=== PATIENT | female | born 1955 | race Caucasian/White ===

== ENCOUNTER 2024-06-12 15:32 | Inpatient (IN) | payer MEDICARE, OTHER, SELFPAY ==
[2024-06-12] VITALS (13 sets, daily range): BP systolic 98–136; BP diastolic 47–93; BMI 27.6
[2024-06-12 12:29] LABS: % Basophils 0.9 % (0-2); % Immature Granulocytes 0.4 % (0-0.5); % Lymphocytes 16.6 % (20.5-51.1); % Monocytes 6.7 % (1.7-9.3); % Neutrophils 73.4 % (42.2-75.2); Absolute Basophils 0.1 10^3/uL (0-0.2); Absolute Eosinophils 0.2 10^3/uL (0-0.7); Absolute Lymphocytes 1.4 10^3/uL (1.2-3.4); Absolute Monocytes 0.6 10^3/uL (0.1-0.6); Hematocrit 41.8 % (37.0-47.0); Hemoglobin 14.3 g/dL (12.0-16.0); Mean Corp Hgb Conc. 34.2 g/dL (33.0-37.0); Mean Corpuscular Hgb 32.4 pg (27.0-31.0); Mean Corpuscular Volume 94.6 fL (81.0-99.0); Nucleated Red Blood Cells % 0 %; Platelet Count 274 10^3/uL (130-400); Red Blood Cell Count 4.42 10^6/uL (4.20-5.40); Red Cell Dist. Width 13.3 % (11.5-14.5); White Blood Cell Count 8.2 10^3/uL (4.8-10.8)
--- NOTE | 2024-06-12 12:31 | ED.GENMED ---
History of Present Illness
General
Chief Complaint: Weakness
Time Seen by Provider: 06/12/24 12:30
History of Present Illness
History of Present Illness:
TIME OF INITIAL ENCOUNTER: 12:30 PM
HPI: Patient came in by ambulance. She has a history of Parkinson's as well as left-sided paresis related to trauma from the early (fall down steps) and lives on her own. She states she has care on Mondays. On Wednesday, she had trouble
getting out of bed and very mildly injured her right ankle but currently has no ankle pain. Patient denies any head injury she was also told that she recently had labs that showed a potassium of 6.3. She has been about needing higher level of
care. She reportedly was soaked in urine when she came in initially. She also reportedly drank alcohol over the weekend. She was essentially bedridden and did have oxycodone near her that she took due to her chronic pain. She states she takes 5
mg of oxycodone in the daytime and 5 mg of oxycodone at nighttime.
EXAM:
GENERAL: The patient appears very weak and debilitated
HEENT: Slightly dry oral mucosa
CARDIOVASCULAR: No murmurs, normal heart rate, regular rhythm, No chest wall tenderness
PULMONARY: No respiratory distress, breath sounds are clear and equal
ABDOMEN: Soft with no peritoneal signs, no tenderness
NEUROLOGIC: Resting tremor noted to the upper extremities, markedly decreased strength in the left upper and left lower extremities, appropriate mental status,
PSYCHIATRIC: Normal insight and judgement, however somewhat of a flat affect
EXTREMITIES: Decreased active range of motion due to decree strength on the left side, no tenderness nor swelling to the right ankle
SKIN: No rash, no lesions
NUMBER AND COMPLEXITY OF PROBLEMS ADDRESSED AT THE ENCOUNTER
� Chronic conditions affecting care: Parkinson's, brain injury with left-sided hemiparesis from 1989, COPD/asthma, high blood pressure
� Acute Exacerbation and/or Progression of Chronic Illness: This is an acute problem
� Differential Diagnosis includes: Dehydration, failure to thrive, progression of Parkinson's, hyperkalemia, LURDES, rhabdomyolysis
AMOUNT AND/OR COMPLEXITY OF DATA TO BE REVIEWED AND ANALYZED
� I performed an independent evaluation of and my interpretation is:
EKG: Baseline artifact but suspect sinus, rate of 73, poor R wave progression, QRS 136 ms/IVCD/LVH
CT: CT chest shows no concerning abnormality regarding nodules seen on x-ray
X-rays: X-ray right ankle unremarkable, x-ray of chest shows a nodule for which radiology recommends CT
Laboratory Studies: CBC unremarkable, 3+ ketones on urinalysis but no clear evidence of infection, CK 114, sodium 133, bicarb 16
Other:
� Review of other/old records: I reviewed records, the patient was admitted here in April 2019 related to an infected stage IV decubitus ulcer at the right middle back.
� Clinical information was obtained by an independent historian: I spoke to a family friend at bedside
� Prescriptions/Medications Considered but not given:
� Further testing considered but not performed:
RISK OF COMPLICATIONS AND/OR MORBIDITY OR MORTALITY OF PATIENT MANAGEMENT
� Social determinants of health affecting care: Lives at home by herself, no family involvement
� Discussion with other providers: Hospitalist for admission for dehydration
� Escalation of care including admission/observation vs risk of discharge considered: The patient lives at home and has essentially been bedridden for the past 3 days. She has ketonuria with a bicarb of only 16. She was given
IV fluids. Multiple blood draws were obtained as she had hemolysis several times�still awaiting potassium. Alcohol level is detected at 79. She is not currently tachycardic and MCV is 95.
ANY OTHER UPDATES:
Past History
Past History
ED Past Medical History: Asthma, COPD, CVA and Other (Rhabdomyolysis)
ED Past Surgical History: Orthopedic (Left hand surgery) and Other (Jaw surgery)
Social History
Tobacco: Non-smoker
Personal: Single
Living: alone
Employment: Disabled
Phy Exam
Physical Exam
Physical Exam:
See HPI
Course
Orders/Labs/Results
Orders:
Orders
06/12/24 12:17
Alcohol Urgent
Basic Metabolic Panel Urgent
Complete Blood Count/With Diff Urgent
Creatine Phosphokinase Urgent
Comment: ADD
Urinalysis Reflex To Culture Urgent
Date Specimen was Collected: 06/12/24
Time Specimen was Collected: 12:16
Urine Microscopic Reflex Cult Urgent
06/12/24 12:25
EKG [Electrocardiogram (*1)] Urgent
Reason for Study: Vertigo / Dizzy
EKG- Treatment ONCE
06/12/24 12:36
Add On- LAB Urgent
Tests Added?: ck
0.9% Sodium Chloride 1000 ml [Nss] 1,000 ml IV BOLUS
06/12/24 12:41
Ankle, Right 3 view CR [CR Ankle - Right Min 3 Views *] Urgent
Comment:
Reason For Exam: trauma
06/12/24 12:42
CR Chest - 2 Views Urgent
Comment:
Reason For Exam: weakness
06/12/24 12:46
Oxycodone [Roxicodone] 5 mg PO NOW STA
06/12/24 13:45
Comprehensive Metabolic Panel Urgent
06/12/24 14:35
CT Chest With Iv Contrast Urgent
Comment:
Reason For Exam: eval lung nodule
0.9% Sodium Chloride 1000 ml [Nss] 1,000 ml IV BOLUS
06/12/24 15:08
Admit/Transfer Patient As Directed
Co-Sign Provider:
Level of Care: Inpatient admission
Assign to:: Medical/Surgical
Physician / Group: dangelo betts
Diagnosis: ambulatory dysfunction
Reason for Hospitalization: ambulatory dysfunction
Expected length of stay greater than two midnights?: Yes
ELOS- Estimated Length of Stay in days: 3
I certify the patient meets the requirements for IP care: Yes
PRN Pain Medication Management As Directed
May give lesser potent ordered pain med per pt: Yes
preference::
Protocol:: Medication orders for pain may be administered in a
manner that supports deferring to patient preference
when the pt is:
- Requesting an ordered lesser potent pain medication.
Least to most potent pain medications are defined
as: acetaminophen < NSAID < tramadol < opioids
(morphine, oxycodone, hydromorphone).
- Requesting a lesser dose of the same medication IF
ORDERED.
- Requesting a less intrusive route of administration
if both routes are prescribed by the provider (PO <
IV).
06/12/24 15:09
Code Status As Directed
Resuscitation Status: Full Code
Abnormal Lab Results
06/12/24 06/12/24
12:17 13:45
MCH 32.4 H pg
(27.0-31.0)
Lymphocytes % 16.6 L %
(20.5-51.1)
Sodium 133 L mmol/L
(135-145)
Chloride 96 L mmol/L
(98-107)
Carbon Dioxide 16 L mmol/L 18 L mmol/L
(22-30) (22-30)
BUN 36 H mg/dl 35 H mg/dl
(7-17) (7-17)
AST 60 H U/L
(14-36)
ALT 43 H U/L
(0-35)
Urine Ketones 3+ A
(Negative)
Ur Occult Blood Reflex 3+ A
(Negative)
Urine RBC 7-10 A /HPF
(0-2)
Urine Bacteria (Reflex) Few A
(Negative)
Urine Albumin (Reflex) 2+ A
(Neg - Trace)
06/12/24 12:17
06/12/24 13:45
Vital Signs
Initial and Last Documented VS:
Initial Vital Signs
BP
132/73
06/12/24 12:18
Last Documented Vital Signs
Temp Pulse Resp BP Pulse Ox
36.7 C 75 18 118/81 100
06/12/24 12:19 06/12/24 15:00 06/12/24 15:00 06/12/24 14:00 06/12/24 14:15
*Critical Care Note
Total Time (30-74mins, 75-104mins- exclusive of procedures): Not Applicable
ED Attending Note
-
Portions of this chart may have been created with voice recognition software.� Occasional wrong word or��sound alike� substitutions may have occurred due to the inherent limitations of voice recognition software.
Discharge Plan
Departure
Patient Disposition: Admit
Date of Disposition: 06/12/24
Time of Disposition: 14:46
Presentation/result/management discussed w/ accepting MD/DO: Hospitalist
Discharge Problem:
Acute dehydration
Interventions
Interventions:
*Risk Screen - Suicide Last Done: 06/12/24 12:19
*General Assessment Last Done: 06/12/24 12:19
*Neglect/Abuse Screening Last Done: 06/12/24 12:19
*ED- Fall Risk Assessment Last Done: 06/12/24 12:19
*ED COVID-19 Vaccine History Last Done: 06/12/24 12:19
ED- Cardiac Assessment Last Done: 06/12/24 12:19
ED- Neurological Assessment Last Done: 06/12/24 12:19
ED- Pulmonary Assessment Last Done: 06/12/24 12:19
[2024-06-12 12:35] LABS: Urine Albumin 2+ (Neg - Trace); Urine Bilirubin Negative (Negative); Urine Character Clear (Clear); Urine Color Yellow; Urine Glucose Negative (Negative); Urine Ketone 3+ (Negative); Urine Leukocyte Negative (Negative); Urine Nitrite Negative (Negative); Urine Occult Blood 3+ (Negative); Urine Urobilinogen Negative (Neg - 1+)
[2024-06-12] MEDS: NSS 1000 IV ×3 (12:46→20:50)
[2024-06-12] MEDS: ROXICODONE 5 MG PO ×2 (12:51→21:06)
[2024-06-12 12:53] LABS: Alcohol 79 mg/dl; Blood Urea Nitrogen 36 mg/dl (7-17); Calcium 9.9 mg/dl (8.4-10.2); Carbon Dioxide 16 mmol/L (22-30); Chloride 96 mmol/L (98-107); Glucose 74 mg/dl (70-99); Sodium 133 mmol/L (135-145); eGFR > 60.00
[2024-06-12 13:12] LABS: Creatine Phosphokinase 114 U/L (30-135)
[2024-06-12 14:28] LABS: Urine White Cell 0-2 /HPF (0-5)
[2024-06-12 14:29] LABS: Urine Squamous Cell 0-2 /LPF (Few)
[2024-06-12 14:30] LABS: Urine Bacteria Few (Negative)
[2024-06-12 14:34] LABS: ALT (SGPT) 43 U/L (0-35); AST (SGOT) 60 U/L (14-36); Albumin 4.1 g/dl (3.5-5.0); Alkaline Phosphatase 78 U/L (38-126); Blood Urea Nitrogen 35 mg/dl (7-17); Calcium 9.2 mg/dl (8.4-10.2); Carbon Dioxide 18 mmol/L (22-30); Chloride 99 mmol/L (98-107); Glucose 73 mg/dl (70-99); Sodium 136 mmol/L (135-145); Total Bilirubin 1.3 mg/dl (0.2-1.3); Total Protein 6.3 g/dl (6.3-8.2); eGFR > 60.00
--- NOTE | 2024-06-12 14:41 | HPS.HSE ---
Family Physician
-
Family Physician: Zane White, DO
Chief Complaint
-
ambulatory dysfunction.
History of Present Illness
69 year old with PMH for Parkinson disease, asthma, osteoporosis, htn, HLD, ADD presented to us with ambulatory dysfunction since Wednesday. patient stated two falls last week. she fell on her knees. denid hitting her head. since Wednesday, she is too
weak to get up from bed and walk, she pretty much stayed in bed. she wet herself on the bed, as she was not able to walk to the bathroom. denied ARNDT, dizzy or syncope. denied fever, chills, chest pain, sob. denied abdominal pain,n,v,d. denied dysuria
or hematuria.
she drinks vodka daily, her last drink was this morning.
upon arrival she was noted to electrolyte imbalance. received normal saline in ER. admitting for further management.
Medical History
Past Medical History
Past Medical History: Reports Other
Additional Past Medical History:
Asthma
Anxiety
Hyperlipidemia
Osteoporosis
Hypertension
ADD
Parkinson's
Rosacea
Subdural hematoma with left hemiplegia
Left ankle fracture
Gastric ulcer
Prurigo nodularis
Past Surgical History: Reports Other
Additional Past Surgical History:
Jaw joint replacement
Left hand tendon reconstruction
Drainage of hematoma from leg
Social History
Tobacco: Non-smoker
Alcohol: Daily
Drug: None
Personal: Single
Living: Alone
Family History
Family History: Not pertinent
Allergies / Home Medications
Allergies reflects when Allergies were last updated in [employer].
Home Medications with original date entered in [employer]
Allergy/Medication List:
Allergies
Allergy/AdvReac Type Severity Reaction Status Date / Time
levofloxacin [From Levaquin] Allergy Rash Verified 06/12/24 12:15
sodium pentathol Allergy Unknown Uncoded 06/12/24 12:15
Home Medications
albuterol sulfate 90 mcg/actuation aerosol inhaler 1 puff inhalation R Q4HPRN PRN sob/wheeze 04/10/19
bupropion HCl 300 mg 24 hr tablet, extended release 300 mg PO DAILY 04/10/19
cholecalciferol (vitamin D3) 25 mcg (1,000 unit) tablet 1,000 units PO DAILY 04/10/19
diphenhydramine HCl 2 % topical gel (Benadryl) 1 applic topical DAILYPRN PRN wound - neck/foot/other 04/10/19
docusate sodium 100 mg capsule 100 mg PO QIDPRN PRN constipation 04/10/19
fluticasone furoate 100 mcg-vilanterol 25 mcg/dose inhalation powder (Breo Ellipta) 1 puff inhalation R DAILY 04/10/19
folic acid 1 mg tablet 1 mg PO DAILY 04/10/19
guaifenesin 600 mg tablet, extended release 12 hr (Mucus Relief ER) 600 mg PO Q6HPRN PRN congestion 04/10/19
oxycodone 5 mg tablet 5 mg PO Q6HPRN PRN moderate pain 04/10/19
polyethylene glycol 3350 17 gram oral powder packet 17 grams PO DAILYPRN PRN constipation 04/10/19
valsartan 40 mg tablet 40 mg PO HS 04/10/19
acetaminophen 500 mg tablet (Tylenol Extra Strength) 500 mg PO Q4HPRN PRN mild pain 05/04/19
clonazepam 1 mg tablet 4 mg PO DAILY 05/04/19
polyvinyl alcohol-povidone (PF) 1.4 %-0.6 % eye drops in a dropperette (Refresh Classic (PF)) 1 drops BOTH EYES DAILYPRN PRN dry eye/irritation 05/04/19
amoxicillin 500 mg-potassium clavulanate 125 mg tablet 1 tab PO Q12 05/09/19
ketoconazole 2 % topical cream 1 applic topical BID 05/09/19
miconazole nitrate 2 % topical powder (Miconazorb AF) 1 applic topical DAILY 05/09/19
miconazole nitrate 2 % topical powder (Miconazorb AF) 1 applic topical PRN PRN SOILAGE/DRAINAGE 05/09/19
sodium hypochlorite 0.125 % solution (Dakin's Solution) 1 applic topical DAILY 05/09/19
white petrolatum 42 % topical ointment (Hydrophor) 1 applic topical DAILY 05/09/19
Review of Systems
-
Constitutional: Reports No Symptoms
EENT: Reports No Symptoms
Respiratory: Reports No Symptoms
Cardiac: Reports No Symptoms
Abdomen/GI: Reports No Symptoms
: Reports No Symptoms
Musculoskeletal: Reports No Symptoms
Skin: Reports No Symptoms
Neurological: Reports Weakness
Endocrine: Reports No Symptoms
Hematologic/Lymphatic: Reports No Symptoms
Psych: Reports No Symptoms
Physical Exam
Vital Signs
Vital Signs
Temp Pulse Resp BP Pulse Ox
98.0 F 76 16 132/73 99
06/12/24 12:19 06/12/24 12:19 06/12/24 12:19 06/12/24 12:19 06/12/24 12:19
Physical Exam
General: Well Developed, Well Nourished and No Apparent Distress
HEENT: NormoCephalic, Moist mucous membranes and Atraumatic
Respiratory: Clear
Cardiac: S1/S2 and Regular Rhythm; No Murmur or Rub
GI: Soft, Non Tender, Non Distended and Normal Bowel Sounds; No Organomegaly
Rectal: Deferred by Provider
Musculoskeletal: No Clubbing, No Cyanosis and No Edema
Skin: No Rash
Neuro: AO x 3 and Nonfocal/grossly intact
Psych: Calm
Laboratory Results
-
06/12/24 12:17
06/12/24 13:45
Laboratory Results
PT Cancelled 06/12/24 12:29
INR Cancelled 06/12/24 12:29
Total Bilirubin 1.3 mg/dl (0.2-1.3) 06/12/24 13:45
AST 60 U/L (14-36) H 06/12/24 13:45
ALT 43 U/L (0-35) H 06/12/24 13:45
Alkaline Phosphatase 78 U/L (38-126) 06/12/24 13:45
Data Reviewed
-
Diagnostic Radiology: Report Reviewed by me
Lab Data: Labs Reviewed by me
Impression/Plan
-
# Ambulatory dysfunction/fall
-hxt of fall with left sided hemiparesis, walks with walker
-right ankle x ray with no acute fracture.
-PT/OT consulted
-Cm consulted for placement.
# history of Parkinson
#essential tremors
#chronic pain
-propranolol continued
-oxy continued
# anion gap metabolic acidosis likely dehydration
- , CO2 18,anion gap 19
-fluids continued
-BMP in am
#Midlung Nodule
-Chest x-ray with no acute pulmonary abnormality. 1.4 cm right midlung nodule
- CT of chest pending
# Chronic transaminitis likely from alcohol use
- AST 60, ALT 43
-denied abdominal pain
-trend LFT
#alcohol dependence
-protocol initiated
-monitor MSAS score
#hxt of asthma
-Singulair continued
-nebs from home continued
#essential HTN
-Norvasc continued
#DVT prophylaxis
-Lovenox
#CODE status
-full code
--- NOTE | 2024-06-12 15:12 | W.PN.UPDATE ---
Update Note
Progress Note Update
This note serves as an addendum to the H&P by casing flusher MARYA Cait NESBITT
HPI
69F [facility] EMS from home, lives alone, use walker to walk home help care on Mondays, chronic narcotic depedent depedent pain daily ETOH use, HX Parkinson dz, HX Asthma, COPD, CVA, , HX Rt brachial plexopathy, HX TBI complicated with Lt sided
hemiparesis due to remote HX of fall,du HTN, HX healed Chr mid back wound, has care on Mondays.
- last Wednesday, she had trouble getting out of bed s/p fall on her kness , currently has no pain.
- essentially bed ridden since Wednesday otherwise
- denies any head injury
- she recently had labs that showed a potassium of 6.3. Vurrent K is 5.0 at ER
- reportedly was soaked in urine when she came in initially
- reportedly drank daily Vodka 8 oz
- She is on 5 mg of oxycodone in the daytime and 5 mg of oxycodone at nighttime.
PHX; see above
Vital Signs
Temp Pulse Resp BP Pulse Ox
98.0 F 75 18 118/81 100
06/12/24 12:19 06/12/24 15:00 06/12/24 15:00 06/12/24 14:00 06/12/24 14:15
PE
Gen: chr ill , looks weak and debilitated
HEENT: dry oral mucosa
Neck: supple
Lungs: CTA
Cor: RRR S1 S2
Abdomen:
ESL INSTRUCTIONAL ASSISTANT:
- resting tremor noted to the upper extremities
- decreased strength in the left upper and left lower extremities
- appropriate mental status,
MS:
Psych: Normal insight and judgement,
Labs
05/23/19 06/12/24 06/12/24
06:00 12:17 13:45
WBC 4.6 L 8.2
Hgb 11.1 L 14.3
Plt Count 274
Sodium 133 L 136
Potassium 5.0
Chloride 96 L 99
Carbon Dioxide 16 L 18 L
BUN 36 H 35 H
Creatinine 1.0 1.0
eGFR > 60.00 > 60.00
AST 60 H
ALT 43 H
Creatine Kinase 114
Albumin 4.1
Last hospitalist admission: 05/04/2019 - 05/09/2019
PRIMARY DIAGNOSIS:
1. Infected stage IV decubitus ulcer of the right middle back.
2. Chronic neck wound.
ASSESSMENT & PLAN
Deconditioning s/p recent falls: NEG Areli XR for Fx
Interval acute decline of chr ambulatory dysfuction
Dehydration
- IV NS 80/H
- PT
- CRM consult for placement ? SNF
Daily ETOH use disorder or habituation
Ab LFTS - ETOH liver dz vs. dehydration AILI
- check GGT
- Trend LFTs in response to IVF
- concern for WDS
- ETOH WD protocol for low risk
HX COPD
- c/w all OP med
HX Parkinson dz Dxed at [facility]
- she was not tolerating Parkinson Meds due to vomiting per patient
- c/w CORN CROP SUPERVISOR Propranolol
Chr ambulatory dysfunction at baseline
Use walker at base line
HX traumatic brain injury complicated by Lt sided hemiparesis
Known Right brachial plexopathy
Lives lone with support of home health care care on Mondays
- eval for placement
DVT Px: LMWH
Full code
IP MS
[2024-06-12] MEDS: THIAMINE INJECTION 200 MG IV (20:40)
[2024-06-12] MEDS: INDERAL 10 MG PO (20:40)
[2024-06-12] MEDS: LOVENOX SC (20:51)
[2024-06-12] MEDS: INDERAL PO (21:15)
[2024-06-12 21:24] LABS: GGTP 20 U/L (12-43); Magnesium 1.7 mg/dl (1.6-2.3); Phosphorus 3.5 mg/dl (2.5-4.5)
[2024-06-12 21:26] LABS: Alcohol None Detected
[2024-06-12] MEDS: AMBIEN 5 MG PO (22:32)
[2024-06-12 23:01] LABS: Amphetamines Negative (Negative); Barbiturates Negative (Negative); Benzodiazepines Negative (Negative); Buprenorphine Negative (Negative); Cocaine Negative (Negative); Marijuana Negative (Negative); Methadone Negative (Negative); Methamphetamines Negative (Negative); Opiates Negative (Negative); Phencyclidine Negative (Negative); Tricyclic Antidepressants Negative (Negative)
[2024-06-12 23:18] LABS: Fentanyl, Urine Negative (Negative)
[2024-06-13] VITALS (23 sets, daily range): BP systolic 100–161; BP diastolic 42–112; PULSE 83; O2SAT 98; BMI 27.6; BMI 28.1
[2024-06-13 06:31] LABS: ALT (SGPT) 33 U/L (0-35); AST (SGOT) 41 U/L (14-36); Albumin 2.9 g/dl (3.5-5.0); Alkaline Phosphatase 59 U/L (38-126); Blood Urea Nitrogen 36 mg/dl (7-17); Calcium 8.1 mg/dl (8.4-10.2); Carbon Dioxide 20 mmol/L (22-30); Chloride 101 mmol/L (98-107); Direct Bilirubin 0.3 mg/dl (0.0-0.4); Estimated Creatinine Clearance 55 ml/min; Glucose 101 mg/dl (70-99); Potassium 4.5 mmol/L (3.5-5.1); Sodium 132 mmol/L (135-145); Total Bilirubin 1.2 mg/dl (0.2-1.3); Total Protein 4.7 g/dl (6.3-8.2); eGFR > 60.00
[2024-06-13] MEDS: FOLVITE 1 MG PO (08:03)
[2024-06-13] MEDS: NORVASC 5 MG PO (08:03)
[2024-06-13] MEDS: SINGULAIR 10 MG PO (08:04)
[2024-06-13] MEDS: THIAMINE INJECTION 200 MG IV ×2 (08:04→20:36)
[2024-06-13] MEDS: DESENEX/MITRAZOL/ZEASORB 1 APPLIC TOPICAL ×2 (08:05→20:33)
[2024-06-13] MEDS: NSS 1000 IV ×2 (08:05→20:33)
[2024-06-13] MEDS: INDERAL 10 MG PO ×3 (10:33→22:21)
[2024-06-13] MEDS: ROXICODONE 5 MG PO ×2 (12:28→21:29)
--- NOTE | 2024-06-13 14:22 | PTOTSP ---
Dysphagia Evaluation
Patient presents with acute on chronic risk dysphagia/aspiration risk factors (i.e., Parkinson's disease, TBI, asthma/COPD, daily ETOH use and chronic narcotic use) and CXR with concern for possible right sided PNA. Patient with frequent coughing
at the bedside making r/o aspiration difficulty and reported liquids going into 'windpipe'.
Recommend:
1. Temporary NPO
2. Medications via non-oral if able, otherwise essential meds in puree
3. Oral care 3x daily
4. Video swallow study
5. Hold aspiration risk hydration protocol due to frequent coughing and concern for acute PNA
--- NOTE | 2024-06-13 15:34 | W.PN.HOSP.TC ---
Addendum entered and electronically signed by Judy Sanchez MD 06/13/24 15:58:
I saw and evaluated the patient. I reviewed the resident�s note and agree with findings and plan as documented in the resident�s note.
A/P:
# Clinical deconditioning with frequent falls at home
# Ambulatory dysfunction
Uses a walker at baseline
PT OT recc SNF
# Cough following diet due to chronic dysphagia
# Aspiration pneumonitis versus pneumonia
CXR noted new Mild right lower lobe atelectasis versus developing pneumonia
Check procal and would add empiric antibiotic for aspiration pneumonia coverage if elevated
Appreciate SPL eval, recc NPO for now
Check VSE
# Alcohol abuse/ daily alcohol drinking
counseled on alcohol cessation
Continue MSAS protocol, watch for withdrawal
# Parkinson's disease history
Continue with propranolol for the tremors
# Hypertension:
blood pressure 127/79 today, well-controlled
Continue amlodipine 5 mg p.o. daily
DVT ppx: Lovenox SQ
FC
Original Note:
Today's Communication/Plan
-
- follow up speech therapy
- follow up pt/ot
Assessment / Plan
Assessment / Plan
Deconditioning status post recent fall
Ambulatory dysfunction:
- Speech evaluation ordered
- Uses a walker at baseline
- PT OT ordered
- Will wait for speech therapy recommendations on diet
- Monitor electrolytes and hydration
- Patient likely needs skilled
- Continue to assess functional status daily
Suspicion for aspiration pneumonia:
- Patient complains of shortness of breath and coughing after eating food
- Chest x-ray ordered
- Speech evaluation ordered
Alcohol abuse:
- Counseled on alcohol cessation
- Patient last drink yesterday morning and drinks daily
- Continue MSAS protocol
Parkinson's disease history:
- Continue with propranolol for the tremors
Hypertension:
-Today blood pressure is 127/79 and well-controlled
- Continue amlodipine 5 mg p.o. daily
Anticipated Discharge: 24 - 48 hours
Subjective/Interval History
-
Date of Service: June 13, 2024
Patient is complaining of pain and wants an extra dose of oxycodone to control pain. She is already taking Oxy twice a day prior to admission and and is being prescribed by her primary care provider.
Also complains of shortness of breath and coughing after eating food
Objective Data
-
Labs:
Laboratory Results
06/13/24
05:55
Sodium 132 L
Potassium 4.5
Chloride 101
Carbon Dioxide 20 L
BUN 36 H
Creatinine 1.0
Glucose 101 H
Calcium 8.1 L
Total Bilirubin 1.2
AST 41 H
ALT 33
Alkaline Phosphatase 59
Vital Signs:
Vital Signs
Temp Pulse Resp BP Pulse Ox
98.5 F 85 20 127/79 96
06/13/24 11:52 06/13/24 08:21 06/13/24 08:21 06/13/24 10:33 06/13/24 11:13
I&O
06/12/24 06/13/24 06/14/24
06:59 06:59 06:59
Intake Total 240 / 240
Balance 240 / 240
Review of Systems
-
All other systems: Reviewed and negative
Physical Exam
-
General: Appears Chronically Ill
Respiratory: Clear to Auscultation
Cardiac: Regular Rhythm and S1/S2
GI: Soft, Nondistended and Normal Bowel Sounds
Musculoskeletal: No Edema
Neuro: Awake, Alert, Oriented, AO x 3 and Other (Decreased strength on upper left extremity, resting tremor on upper left extremity)
Data Reviewed
-
Labs: Labs Reviewed by me and Discussed with Physician
[2024-06-13] MEDS: LOVENOX 40 MG SC (17:55)
[2024-06-13 18:49] LABS: Procalcitonin < 0.05 ng/ml (0.0-0.25)
--- NOTE | 2024-06-13 21:00 | PTCARENOTE ---
Addendum entered by Roby Diamond RN 06/14/24 05:57:
Pt c/o SOB after turning to be clean. Placed back in 2L O2 NC. STOCKROOM CLERK and respiratory notified. COVID and Flu test order. Will wean off O2.
Original Note:
Pt was admitted to [facility]. AAOx3, forgetful at times and anxious. Pt c/o SOB moved to the bed. Dyspneic w/ exertion.SaO2 94% RA. Placed on 2L for comfort till stable fro 1 hr. MSAS score <4. Purewick in placed for incontinence. Pt c/o itchy back. STOCKROOM CLERK
notify. Abd round and obese. Wounds noted and charted. Will cont w/ tx plan.
[2024-06-13] MEDS: AMBIEN 5 MG PO (22:23)
[2024-06-13] MEDS: CALAMINE LOTION 180 ML TOPICAL (22:45)
[2024-06-14] MEDS: ProAIR HFA INHALER 2 PUFF INH (05:09)
[2024-06-14 06:08] LABS: COVID-19 Antigen Negative (Negative)
[2024-06-14 07:05] VITALS: BP 118/62
[2024-06-14] MEDS: FOLVITE 1 MG PO (08:14)
[2024-06-14] MEDS: NORVASC 5 MG PO (08:15)
[2024-06-14] MEDS: INDERAL 10 MG PO ×3 (08:15→20:26)
[2024-06-14] MEDS: THIAMINE INJECTION 200 MG IV ×2 (08:15→20:25)
[2024-06-14] MEDS: SINGULAIR 10 MG PO (08:15)
[2024-06-14] MEDS: DESENEX/MITRAZOL/ZEASORB 1 APPLIC TOPICAL ×2 (08:16→20:31)
--- NOTE | 2024-06-14 08:40 | PTOTSP ---
Speech Language Pathology
VIDEOFLUOROSCOPIC SWALLOWING EXAMINATION (VSE) completed. Oropharyngeal swallow WFL. No penetration/aspiration or significant pharyngeal residue noted during study. Esophageal sweep demonstrated esophageal residue noted with backflow below level
of PES. Liquid wash effective at reducing esophageal residue. Of note, pt complaining of being SOB at times during study, which she attributed to anxiety.
Recommend:
(1) Initiate regular solids/thin liquids
(2) Esophageal precautions
(3) Meds as tolerated
(4) Consider OP GI consult
(5) SSN/SSBN ASSISTANT NAVIGATOR to sign off. Please reconsult as indicated.
[2024-06-14 08:56] LABS: Blood Urea Nitrogen 19 mg/dl (7-17); Calcium 8.6 mg/dl (8.4-10.2); Carbon Dioxide 21 mmol/L (22-30); Chloride 104 mmol/L (98-107); Estimated Creatinine Clearance 82 ml/min; Glucose 110 mg/dl (70-99); Potassium 4.3 mmol/L (3.5-5.1); Sodium 134 mmol/L (135-145); eGFR > 60.00
[2024-06-14 10:32] LABS: Hematocrit 33.9 % (37.0-47.0); Hemoglobin 11.6 g/dL (12.0-16.0); Mean Corp Hgb Conc. 34.2 g/dL (33.0-37.0); Mean Corpuscular Hgb 32.3 pg (27.0-31.0); Mean Corpuscular Volume 94.4 fL (81.0-99.0); Mean Platelet Volume 8.9 fL (7.4-10.4); Platelet Count 214 10^3/uL (130-400); Red Blood Cell Count 3.59 10^6/uL (4.20-5.40); Red Cell Dist. Width 13.2 % (11.5-14.5); White Blood Cell Count 6.1 10^3/uL (4.8-10.8)
[2024-06-14] MEDS: ROXICODONE 5 MG PO ×2 (12:30→21:40)
--- NOTE | 2024-06-14 13:28 | CM ---
CM reviewed chart, patient seen bedside, initial assessment completed. Patient resides in an apartment (3rd floor) elevator access- [facility] apartment. Patient reports having a RW at home, is current with [facility]. Patient
reports she has been to [facility] and [facility] in the past (4 years ago). Patient reports she has care on Mondays through private caregiver, assists with cooking and cleaning. Patient confirms PCP Zane White, pharmacy [facility], confirms
prescription coverage. Patient agreeable to SNF, requesting referral to [facility] as patients independent living is connected with [facility]. Discussed consult for substance, patient declining, reports she has been to inpatient rehab in the
past, years ago, no inpatient pysch history. CM will continue to follow for all discharge planning needs.
Plan; SNF, referrals to [facility]
--- NOTE | 2024-06-14 15:12 | W.PN.HOSP.TC ---
Addendum entered and electronically signed by Judy Sanchez MD 06/14/24 15:26:
I saw and evaluated the patient. I reviewed the resident�s note and agree with findings and plan as documented in the resident�s note.
A/P:
# Clinical deconditioning with frequent falls at home
# Ambulatory dysfunction
Uses a walker at baseline
PT OT recc SNF
# Cough following diet
# Likely Aspiration pneumonitis with CXR finding
CXR noted new Mild right lower lobe atelectasis versus developing pneumonia
procal negative, hence will not start abx
s/p VSE, cleared for regular and thin liquid
# Alcohol abuse/ daily alcohol drinking
counseled on alcohol cessation
Continue MSAS protocol, watch for withdrawal
# Parkinson's disease history
Continue with propranolol for the tremors
# Hypertension:
blood pressure 127/79 today, well-controlled
Continue amlodipine 5 mg p.o. daily
DVT ppx: Lovenox SQ
FC
Original Note:
Today's Communication/Plan
-
- Case management trying to find SNF
Assessment / Plan
Assessment / Plan
Deconditioning status post recent fall
Ambulatory dysfunction:
- Speech evaluation ordered
- Uses a walker at baseline
- PT OT recommends SNF. Case management put in a referral for [facility]
- Monitor electrolytes and hydration
- Continue to assess functional status daily
Suspicion for aspiration pneumonitis:
- Patient complains of shortness of breath and coughing after eating food
- Speech signed off
- VSE was unremarkable. patient restarted on regular diet.
- Procalcitonin negative after X-ray showed a possible developing pneumonia
Alcohol abuse:
- Counseled on alcohol cessation
- Patient last drink yesterday morning and drinks daily
- Continue MSAS protocol
Parkinson's disease history:
- Continue with propranolol for the tremors
Hypertension:
-Today blood pressure is 118/62 and well-controlled
- Continue amlodipine 5 mg p.o. daily
Anticipated Discharge: 24 - 48 hours
Subjective/Interval History
-
Date of Service: June 14, 2024
No acute medical complaints today.
Objective Data
-
Labs:
Laboratory Results
06/14/24 06/14/24
07:38 09:48
WBC Cancelled 6.1
Hgb Cancelled 11.6 L
Hct Cancelled 33.9 L
Plt Count Cancelled 214 D
Sodium 134 L
Potassium 4.3
Chloride 104
Carbon Dioxide 21 L
BUN 19 H
Creatinine 0.7
Glucose 110 H
Calcium 8.6
Vital Signs:
Vital Signs
Temp Pulse Resp BP Pulse Ox
97.7 F 80 18 118/62 98
06/14/24 07:05 06/14/24 07:05 06/14/24 07:05 06/14/24 08:15 06/14/24 07:05
I&O
06/13/24 06/14/24 06/15/24
06:59 06:59 06:59
Intake Total 1600 / 1600
Output Total 1150 / 1150 750 / 750
Balance 450 / 450 -750 / -750
Review of Systems
-
All other systems: Reviewed and negative
Physical Exam
-
General: Appears Chronically Ill
Respiratory: Clear to Auscultation
Cardiac: Regular Rhythm and S1/S2
GI: Soft, Nondistended and Normal Bowel Sounds
Musculoskeletal: No Edema
Neuro: Awake, Alert, Oriented, AO x 3 and Other (Decreased strength on upper left extremity, resting tremor on upper left extremity)
Data Reviewed
-
Labs: Labs Reviewed by me and Discussed with Physician
[2024-06-14 15:55] VITALS: BP 129/69
[2024-06-14] MEDS: LOVENOX 40 MG SC (17:45)
[2024-06-14] MEDS: AMBIEN 5 MG PO (20:26)
[2024-06-14 23:02] VITALS: BP 145/68
[2024-06-15] MEDS: ROXICODONE 2.5 MG PO (05:02)
--- NOTE | 2024-06-15 06:18 | PTCARENOTE ---
AAO x 4, MSAS+ 3-4. No medication intervention required per protocol. Tremors, at baseline, due to parkinsons. GOFF with noticeable weakness in bilateral lower extremities. Q 2 hour turns. Patient complains of chronic, generalized pain with
intermittent back spasms. Scheduled oxy and one time dose oxy administered for pain management. Incontinence care performed. Bed in lowest position. Heels elevated. Call carmichael and personal belongings within reach.
[2024-06-15 07:00] VITALS: BP 154/79
[2024-06-15 08:01] LABS: Hematocrit 34.7 % (37.0-47.0); Hemoglobin 11.6 g/dL (12.0-16.0); Mean Corp Hgb Conc. 33.4 g/dL (33.0-37.0); Mean Corpuscular Volume 95.9 fL (81.0-99.0); Mean Platelet Volume 9.5 fL (7.4-10.4); Platelet Count 205 10^3/uL (130-400); Red Blood Cell Count 3.62 10^6/uL (4.20-5.40); Red Cell Dist. Width 13.2 % (11.5-14.5); White Blood Cell Count 5.5 10^3/uL (4.8-10.8)
[2024-06-15 08:34] LABS: Blood Urea Nitrogen 15 mg/dl (7-17); Calcium 9.2 mg/dl (8.4-10.2); Carbon Dioxide 29 mmol/L (22-30); Chloride 100 mmol/L (98-107); Estimated Creatinine Clearance 72 ml/min; Glucose 104 mg/dl (70-99); Magnesium 1.7 mg/dl (1.6-2.3); Potassium 4.2 mmol/L (3.5-5.1); Sodium 134 mmol/L (135-145); eGFR > 60.00
--- NOTE | 2024-06-15 10:36 | W.PN.HOSP.TC ---
Addendum entered and electronically signed by Judy Sanchez MD 06/15/24 12:49:
I saw and evaluated the patient. I reviewed the resident�s note and agree with findings and plan as documented in the resident�s note.
A/P:
# Clinical deconditioning with frequent falls at home
# Ambulatory dysfunction
Uses a walker at baseline
PT OT recc SNF
# Cough following diet
# Likely Aspiration pneumonitis with CXR finding
CXR noted new Mild right lower lobe atelectasis versus developing pneumonia
procal negative, hence will not start abx
s/p VSE, cleared for regular and thin liquid. General swallowing precautions
# Alcohol abuse/ daily alcohol drinking
counseled on alcohol cessation
Continue MSAS protocol, watch for withdrawal
# Parkinson's disease history
Continue with propranolol for the tremors
# Hypertension:
blood pressure 127/79 today, well-controlled
Continue amlodipine 5 mg p.o. daily
DVT ppx: Lovenox SQ
FC
Dispo: SNF
Original Note:
Today's Communication/Plan
-
- Follow up case managment
Assessment / Plan
Assessment / Plan
Case managment is trying to find a bed in an SNF.
Deconditioning status post recent fall
Ambulatory dysfunction:
- Speech evaluation ordered
- Uses a walker at baseline
- PT OT recommends SNF. Case management put in a referral for [facility].
- Monitor electrolytes and hydration
- Continue to assess functional status daily
Suspicion for aspiration pneumonitis:
- Patient complains of shortness of breath and coughing after eating food
- Speech signed off
- VSE was unremarkable. patient restarted on regular diet.
- Procalcitonin negative after X-ray showed a possible developing pneumonia
Alcohol abuse:
- Counseled on alcohol cessation
- Patient last drink yesterday morning and drinks daily
- Continue MSAS protocol
Parkinson's disease history:
- Continue with propranolol for the tremors
Hypertension:
-Today blood pressure is 118/62 and well-controlled
- Continue amlodipine 5 mg p.o. daily
DVT: Lovenox 40 mg
Anticipated Discharge: Within 24 hours
Subjective/Interval History
-
Date of Service: June 15, 2024
No acute medical complaints today.
Objective Data
-
Labs:
Laboratory Results
06/15/24
07:04
WBC 5.5
Hgb 11.6 L
Hct 34.7 L
Plt Count 205
Sodium 134 L
Potassium 4.2
Chloride 100
Carbon Dioxide 29
BUN 15
Creatinine 0.8
Glucose 104 H
Calcium 9.2
Vital Signs:
Vital Signs
Temp Pulse Resp BP Pulse Ox
97.9 F 80 20 154/79 100
06/15/24 07:00 06/15/24 07:00 06/15/24 07:00 06/15/24 07:00 06/15/24 07:00
I&O
06/14/24 06/15/24 06/16/24
06:59 06:59 06:59
Intake Total 1600 / 1600 240 / 240
Output Total 1150 / 1150 750 / 750
Balance 450 / 450 -510 / -510
Review of Systems
-
All other systems: Reviewed and negative
Physical Exam
-
General: Appears Chronically Ill
Respiratory: Clear to Auscultation
Cardiac: Regular Rhythm and S1/S2
GI: Soft, Nondistended and Normal Bowel Sounds
Musculoskeletal: No Edema
Neuro: Awake, Alert, Oriented, AO x 3 and Other (Decreased strength on upper left extremity, resting tremor on upper left extremity)
Data Reviewed
-
Labs: Labs Reviewed by me and Discussed with Physician
[2024-06-15 11:00] VITALS: BP 162/87
[2024-06-15] MEDS: ROXICODONE 5 MG PO ×2 (11:39→21:27)
[2024-06-15] MEDS: INDERAL 10 MG PO ×3 (11:39→20:18)
[2024-06-15] MEDS: FOLVITE 1 MG PO (11:39)
[2024-06-15] MEDS: SINGULAIR PO (11:45)
[2024-06-15] MEDS: DESENEX/MITRAZOL/ZEASORB 1 APPLIC TOPICAL ×2 (11:47→20:19)
[2024-06-15] MEDS: NORVASC 5 MG PO (11:50)
--- NOTE | 2024-06-15 13:52 | PN.CDI ---
CDI
- -
CDI:
Physician Documentation Request
Admit Date: 06/12/24 15:32
Dear Doctor Sury,
Patient admitted for pneumonia.
Laboratory Tests
06/12/24 06/13/24 06/14/24
12:17 05:55 07:38
Sodium 133 L 132 L 134 L
06/15/24
07:04
Sodium 134 L
Based on the above, could you clarify in the progress notes, the appropriate diagnosis, if significant, that supports the above abnormalities and additional evaluation, monitoring and/or treatment rendered:
Hyponatremia
Abnormal lab value insignificant
Other
Use of terms such as suspected, likely, concern for, or probable (associated with a specific diagnosis that is being evaluated, monitored, or treated as if it exists) are acceptable and can be coded in the inpatient setting, when documented at the
time of discharge.
Thank you,
Sharri Barrios RN, BSN
CDI Specialist
Available via [place] text
Please use your independent medical judgment in providing your response.
--- NOTE | 2024-06-15 14:37 | CM ---
Addendum entered by Tangela Freed 06/15/24 14:42:
No beds at [facility], reviewed with [facility] will check in the a.m. for bed availability.
Original Note:
CM reviewed chart, patient seen bedside, reports voicemail left for Ariel in regards to bed availability, referral also placed to [facility]. No auth required. CM will continue to follow for all discharge planning needs.
Plan; SNF once accepting facility found.
[2024-06-15 15:00] VITALS: BP 152/79
[2024-06-15] MEDS: THIAMINE INJECTION 200 MG IV (15:27)
[2024-06-15] MEDS: FLUSH (NSS) 2 FLUSH IV (15:28)
[2024-06-15 16:28] VITALS: BP 152/79; PULSE 80
[2024-06-15] MEDS: LOVENOX SC (17:48)
[2024-06-15] MEDS: CALAMINE LOTION 180 ML TOPICAL (17:48)
[2024-06-15 20:01] VITALS: BP 138/76
[2024-06-15] MEDS: VITAMIN B1 100 MG PO (20:17)
[2024-06-15] MEDS: AMBIEN 5 MG PO (20:18)
[2024-06-15 23:20] VITALS: BP 144/71
[2024-06-16 03:21] VITALS: BP 149/88
[2024-06-16 07:00] VITALS: BP 106/57
[2024-06-16] MEDS: FOLVITE 1 MG PO (08:40)
[2024-06-16] MEDS: INDERAL 10 MG PO ×2 (08:40→16:08)
[2024-06-16 08:46] LABS: % Basophils 0.9 % (0-2); % Eosinophils 4.8 % (0-6); % Immature Granulocytes 0.4 % (0-0.5); % Lymphocytes 17.7 % (20.5-51.1); % Monocytes 9.8 % (1.7-9.3); % Neutrophils 66.4 % (42.2-75.2); Absolute Basophils 0.1 10^3/uL (0-0.2); Absolute Eosinophils 0.3 10^3/uL (0-0.7); Absolute Monocytes 0.6 10^3/uL (0.1-0.6); Absolute Neutrophils 3.7 10^3/uL (1.4-6.5); Hematocrit 33.9 % (37.0-47.0); Hemoglobin 11.6 g/dL (12.0-16.0); Mean Corp Hgb Conc. 34.2 g/dL (33.0-37.0); Mean Corpuscular Hgb 32.1 pg (27.0-31.0); Mean Corpuscular Volume 93.9 fL (81.0-99.0); Mean Platelet Volume 8.9 fL (7.4-10.4); Nucleated Red Blood Cells % 0 %; Platelet Count 214 10^3/uL (130-400); Red Blood Cell Count 3.61 10^6/uL (4.20-5.40); Red Cell Dist. Width 13.2 % (11.5-14.5); White Blood Cell Count 5.6 10^3/uL (4.8-10.8)
[2024-06-16] MEDS: NORVASC 5 MG PO (08:47)
[2024-06-16] MEDS: VITAMIN B1 100 MG PO (08:47)
[2024-06-16] MEDS: DESENEX/MITRAZOL/ZEASORB 1 APPLIC TOPICAL (08:49)
[2024-06-16 08:56] LABS: ALT (SGPT) 33 U/L (0-35); AST (SGOT) 34 U/L (14-36); Albumin 2.9 g/dl (3.5-5.0); Alkaline Phosphatase 60 U/L (38-126); Blood Urea Nitrogen 15 mg/dl (7-17); Calcium 9.3 mg/dl (8.4-10.2); Carbon Dioxide 30 mmol/L (22-30); Chloride 99 mmol/L (98-107); Estimated Creatinine Clearance 64 ml/min; Glucose 132 mg/dl (70-99); Potassium 4.2 mmol/L (3.5-5.1); Sodium 133 mmol/L (135-145); Total Bilirubin 0.6 mg/dl (0.2-1.3); Total Protein 4.9 g/dl (6.3-8.2); eGFR > 60.00
[2024-06-16] MEDS: ATIVAN 0.25 MG PO ×2 (09:43→16:50)
--- NOTE | 2024-06-16 12:21 | W.PN.HOSP.TC ---
Addendum entered and electronically signed by Judy Sanchez MD 06/16/24 18:19:
total DC time 37 min
Addendum entered and electronically signed by Judy Sanchez MD 06/16/24 14:08:
I saw and evaluated the patient. I reviewed the resident�s note and agree with findings and plan as documented in the resident�s note.
A/P:
# Clinical deconditioning with frequent falls at home
# Ambulatory dysfunction
Uses a walker at baseline
PT OT recc SNF
# Cough following diet
# Likely Aspiration pneumonitis with CXR finding
CXR noted new Mild right lower lobe atelectasis versus developing pneumonia
procal negative, hence will not start abx
s/p VSE, cleared for regular and thin liquid. General swallowing precautions
# Alcohol abuse/ daily alcohol drinking
counseled on alcohol cessation
Continue MSAS protocol, watch for withdrawal
# Parkinson's disease history
Continue with propranolol for the tremors
# Hypertension:
blood pressure 127/79 today, well-controlled
Continue amlodipine 5 mg p.o. daily
DVT ppx: Lovenox SQ
FC
Dispo: SNF
Original Note:
Today's Communication/Plan
-
- case management trying to find bed at SNF for her
Assessment / Plan
Assessment / Plan
Case managment is trying to find a bed in an SNF.
Deconditioning status post recent fall
Ambulatory dysfunction:
- Uses a walker at baseline
- PT OT recommends SNF. Case management put in a referral for SNF's.
- Monitor electrolytes and hydration
- Continue to assess functional status daily
Anxiety:
- patient is feeling anxious about discharge to SNF
- Ordered 0.25mg Lorazepam one dose stat
Suspicion for aspiration pneumonitis:
- Patient complains of shortness of breath and coughing after eating food
- Speech signed off
- VSE was unremarkable. patient restarted on regular/thin diet.
- Procalcitonin negative after X-ray showed a possible developing pneumonia so will not start antibiotics
Alcohol abuse:
- Counseled on alcohol cessation
- Continue MSAS protocol
Parkinson's disease history:
- Continue with propranolol for the tremors
Hypertension:
-Today blood pressure is 106/57 and well-controlled
- Continue amlodipine 5 mg p.o. daily
DVT: Lovenox 40 mg
Anticipated Discharge: Within 24 hours
Subjective/Interval History
-
Date of Service: June 16, 2024
Patient is feeling anxious today about discharge.
Case management is working on finding her a SNF.
Objective Data
-
Labs:
Laboratory Results
06/16/24
08:22
WBC 5.6
Hgb 11.6 L
Hct 33.9 L
Plt Count 214
Sodium 133 L
Potassium 4.2
Chloride 99
Carbon Dioxide 30
BUN 15
Creatinine 0.9
Glucose 132 H
Calcium 9.3
Total Bilirubin 0.6
AST 34
ALT 33
Alkaline Phosphatase 60
Vital Signs:
Vital Signs
Temp Pulse Resp BP Pulse Ox
98.3 F 73 20 106/57 96
06/16/24 07:00 06/16/24 07:00 06/16/24 07:00 06/16/24 07:00 06/16/24 07:00
I&O
06/15/24 06/16/24 06/17/24
06:59 06:59 06:59
Intake Total 240 / 240 1520 / 1520
Output Total 750 / 750
Balance -510 / -510 1520 / 1520
Review of Systems
-
All other systems: Reviewed and negative
Psych: Reports Anxious
Physical Exam
-
General: Appears Chronically Ill
Respiratory: Clear to Auscultation
Cardiac: Regular Rhythm and S1/S2
GI: Soft, Nondistended and Normal Bowel Sounds
Musculoskeletal: No Edema
Neuro: Awake, Alert, Oriented, AO x 3 and Other (Decreased strength on upper left extremity, resting tremor on upper left extremity)
Data Reviewed
-
Labs: Labs Reviewed by me and Discussed with Physician
[2024-06-16] MEDS: SINGULAIR 10 MG PO (12:27)
[2024-06-16] MEDS: ROXICODONE 5 MG PO (12:30)
--- NOTE | 2024-06-16 12:37 | CM ---
Addendum entered by Tangela Freed 06/16/24 14:18:
[facility] able [facility] patient, agreeable to discharge, scheduled for 4:45 p.m. ambulance transport. IMM verbally reviewed, provided to patient, placed in chart.
Plan; [facility], 4:45 p.m. ambulance transport
[facility]
Report: [phone]

Original Note:
CM reviewed chart, patient seen bedside. Discussed no beds at [facility] or [facility] at this time. CM placed another call to [facility], informed no one from admissions is in today. Patient agreeable to additional referrals to [facility] and [facility]. Patient inquiring about transport when facility found, patient will require ambulance transport. CM will continue to follow for all discharge planning needs.
Plan; SNF, additional referrals placed, will require ambulance transport.
[2024-06-16 15:00] VITALS: BP 148/84
--- NOTE | 2024-06-16 16:48 | W.DCSUMMARY ---
Documented by User: South Ga MD, Resident 06/16/24 17:36
Discharge Summary
Discharge Data
Date of Admission: 06/12/24
Date of Discharge: 06/16/24
-
Pending Results: No
Hospital Course
Discharging Physician : Dr. Judy Sanchez and Dr. South Ga
Disposition : SNF
Principal Discharge diagnosis : Ambulatory dysfunction with frequent falls, clinical deconditioning, chronic cough
Chronic Discharge diagnosis : Alcohol abuse, Parkinson's disease, hypertension
Hospital Course : 69 year old female with past medical history for Parkinson disease, asthma, osteoporosis, hypertension, hyperlipidemia, presented to ED on 06/12/24 with ambulatory dysfunction with 2 falls on her knees. Associated with weakness,
unable to get out of the bed, with urinary incontinence that she is unable to get to the bathroom. Denied headache dizziness syncope, fever, chills, chest pain, sob, abdominal pain, nausea, vomiting, diarrhea, hematuria.
Problem #1: Ambulatory dysfunction with frequent falls---patient uses a walker at baseline. Ankle x-ray was unremarkable. Physical therapy recommends care home facility because she requires maximum assistance due to left extremity weakness,
fatigue, fear of falling. Pain in the hospital was controlled on oxycodone 5 mg twice daily, continue outpatient.
Problem #2: Chronic cough due to possible aspiration pneumonitis---patient complained of chronic cough after eating food. Chest x-ray showed mild right lower lobe atelectasis versus developing pneumonia which was a new finding. Patient was
afebrile and WBC count normal. Pro-Bennett was negative hence the suspicion for pneumonia is low and antibiotics were not started. Speech was consulted and video scopic swallowing exam was performed which was unremarkable, patient was continued on
thin/regular liquids.
Problem #3: Alcohol abuse---patient drinks vodka every single day. She was started on MSAS protocol. She did not have withdrawal symptoms like tremors, sweating, headache, insomnia, palpitations. Counseled on alcohol cessation
Problem #4: Parkinson's disease---does not take any medications for Parkinson's. On physical examination, a resting tremor can be seen in the upper left extremity. Continue on propranolol for the tremors on discharge.
Problem #5: Hypertension---controlled on amlodipine 5 mg, continue on discharge.
Important imaging findings :
Ankle x-ray :
-IMPRESSION:
No osseous injury appreciated.
Chest x-ray
IMPRESSION:
1. No acute pulmonary abnormality appreciated.
2. 1.4 cm right midlung nodule. Further evaluation is recommended with CT thorax.
Chest CT :
IMPRESSION:
1. No acute findings in the chest. There are scattered pulmonary nodules measuring up to 8mm in the left upper lobe which are not significantly changed from 2019 and likely benign.
2. Hepatic steatosis.
Chest x-ray
IMPRESSION:
Mild right lower lobe atelectasis versus developing pneumonia. New.
Procedure findings :
Discharge Plan
-
Patient Disposition: Long Term/SNF
Discharge Diagnosis/Procedures: Ambulatory dysfunction/clinical deconditioning, alcohol abuse, hypertension, Parkinson's disease, Possible Aspiration Pneumonitis
Condition: Fair
Diet: Regular
Activity: As tolerated
Driving Restrictions: No driving
Bathing Restrictions: None
Blood Work: CBC in 1 week with PCP
CMP in 1 week with PCP
Other Services: PT and OT
Referrals:
Zane White, DO [Family Provider] - in less than 1 week
Prescriptions:
New
folic acid 1 mg Tablet
1 mg PO DAILY Qty: 30 0RF
thiamine mononitrate (vit B1) 100 mg Tablet
100 mg PO BID Qty: 30 0RF
Continued
albuterol sulfate 1 PUFF HFA aerosol inhaler
2 puff inhalation R Q4HPRN PRN (Reason: sob/wheeze)
amlodipine [Norvasc] 5 mg Tablet
5 mg PO DAILY Qty: 0 0RF
propranolol 10 mg Tablet
10 mg PO TID Qty: 0 0RF
montelukast [Singulair] 10 mg Tablet
10 mg PO DAILY Qty: 0 0RF
zaleplon 10 mg Capsule
10 mg PO HS Qty: 0 0RF
oxycodone 5 mg Tablet
5 mg PO BID@1200,2200 Qty: 3 0RF
Discharge Orders:
Discharge Patient (As Directed); Ordered 06/16/24
Ordered By: South Ga
Discharge Date and Time
Print Language: SPANISH

Documented by User: Judy Sanchez MD 06/16/24 18:18
Discharge Summary
Discharge Data
Date of Admission: 06/12/24
Date of Discharge: 06/16/24
Hospital Course
Discharging Physician : Dr. Jduy Sanchez and Dr. South Ga
Disposition : SNF
Principal Discharge diagnosis : Ambulatory dysfunction with frequent falls, clinical deconditioning
Chronic Discharge diagnosis : Alcohol abuse, Parkinson's disease, hypertension
Hospital Course : 69 year old female with past medical history for Parkinson disease, asthma, osteoporosis, hypertension, hyperlipidemia, presented to ED on 06/12/24 with ambulatory dysfunction with frequent falls. She also complained of weakness,
and was unable to get out of the bed.
Problem #1: Ambulatory dysfunction with frequent falls. Patient uses a walker at baseline. Her Ankle x-ray was unremarkable. She was discharged to care home facility per PT OT recommendation.
Problem #2: Chronic cough with possible aspiration pneumonitis. Patient complained of chronic cough after eating food. Her Chest x-ray showed mild right lower lobe atelectasis versus developing pneumonia which was a new finding. Patient was
afebrile and WBC count normal. Her procalcitonin level was negative hence suspicion for pneumonia was low and as a result antibiotic was not started. Speech was consulted and video scopic swallowing exam was performed which was unremarkable, patient
was continued on regular diet and thin liquids and was advised to continue diet with general precaution.
Problem #3: Alcohol abuse---patient drinks vodka every single day. She was maintained on MSAS protocol during her hospital stay. She did not have withdrawal symptoms while in the hospital.
She was counseled on alcohol cessation.
Problem #4: Parkinson's disease---does not take any medications for Parkinson's. On physical examination, a resting tremor can be seen in the left upper extremity. Continue home propranolol for the tremors on discharge.
Problem #5: Hypertension---controlled on amlodipine 5 mg, continue on discharge.
Important imaging findings :
Ankle x-ray :
-IMPRESSION:
No osseous injury appreciated.
Chest x-ray
IMPRESSION:
1. No acute pulmonary abnormality appreciated.
2. 1.4 cm right midlung nodule. Further evaluation is recommended with CT thorax.
Chest CT :
IMPRESSION:
1. No acute findings in the chest. There are scattered pulmonary nodules measuring up to 8mm in the left upper lobe which are not significantly changed from 2019 and likely benign.
2. Hepatic steatosis.
Chest x-ray
--- NOTE | 2024-06-16 18:48 | W.PN.UPDATE ---
Update Note
Progress Note Update
Pressure (decubitus) ulcer due to ambulatory dysfunction:
- located on the lower back
- Patient frequently lies prone on bed due to ambulatory dysfunction- Pressure (decubitus) ulcer.
- Frequent position changes, wound management, mobility, and proper nutrition.
--- NOTE | 2024-06-20 11:53 | W.PN.UPDATE ---
Update Note
Progress Note Update
Mild Hyponatremia:
- on discharge sodium is 133
- No headache, confusion, lethargy, seizures
- repeat BMP in 1 week with PCP
== END 2024-06-16 18:39 | DRG 178 ==
LOC: 4 WEST ACU 15:32
PROVIDERS: Emergency Medicine; Nurse Practitioner Family; Registered Nurse; ADMITTING PHYSICIAN Internal Medicine; ATTENDING PHYSICIAN Internal Medicine; EMERGENCY PHYSICIAN Emergency Medicine; FAMILY PHYSICIAN Student in an Organized Health Care Education/Training Program
DX: J69.0 Pneumonitis due to inhalation of food and vomit (principal); E87.1 Hypo-osmolality and hyponatremia; G81.94 Hemiplegia, unspecified affecting left nondominant side; J98.11 Atelectasis; R53.1 Weakness; G20.A1 Parkinson's disease without dyskinesia, without mention of fluctuations; G89.29 Other chronic pain; E86.0 Dehydration; J44.89 Other specified chronic obstructive pulmonary disease; R91.1 Solitary pulmonary nodule; M81.0 Age-related osteoporosis without current pathological fracture; I10 Essential (primary) hypertension; K76.0 Fatty (change of) liver, not elsewhere classified; R13.10 Dysphagia, unspecified; R29.6 Repeated falls; F10.229 Alcohol dependence with intoxication, unspecified; Y90.3 Blood alcohol level of 60-79 mg/100 ml; F41.9 Anxiety disorder, unspecified; L28.1 Prurigo nodularis; G25.0 Essential tremor; E78.5 Hyperlipidemia, unspecified; Z60.2 Problems related to living alone; Z74.01 Bed confinement status; Z87.820 Personal history of traumatic brain injury; Z91.81 History of falling; Z87.11 Personal history of peptic ulcer disease; Z11.52 Encounter for screening for COVID-19
CPT/HCPCS: 71045; 71046; 71260; 73610; 74230; 80048; 80053; 80306; 80307; 81003; 81015; 82010; 82077; 82248; 82550; 82977; 83735; 84100; 84145; 85025; 85027; 87070; 87502; 87811; 92610; 92611; 93005; 94640; 96360; 96361; 97530; 99285; Q9967